=== PATIENT | female | born 1995 | race Caucasian/White ===

== ENCOUNTER 2020-04-19 17:46 | Observation (INO) | payer OTHER, MEDICAID, SELFPAY ==
[2020-04-19] MEDS: LACTATED RINGERS 1,000 ML 1000 ML IV (18:54)
[2020-04-19 19:02] LABS: Bacteria Urine None Seen; RBC Urine None Seen (0-5/HPF); WBC Urine None Seen (0-5/HPF)
[2020-04-19 19:05] LABS: Appearance Urine UA CLEAR; Color Urine UA YELLOW; Glucose Urine UA NEGATIVE (Negative); Ketones Urine UA 2+ (NEGATIVE); Leukocyte Esterase Urine UA NEGATIVE (NEGATIVE); Nitrite Urine UA NEGATIVE (Negative); Occult Blood Urine UA NEGATIVE (Negative); Protein Urine UA 2+ (Negative); Specific Gravity Urine UA >=1.030 (1.000-1.035); Urobilinogen Urine UA 0.2 E.U./dL (0.2)
[2020-04-19 19:32] LABS: Squamous Epithelial Cell Urine 0-1 /HPF (0-5/HPF)
[2020-04-19 19:33] LABS: Amorphous Sediment Urine 2+; Culture Indicated Urine Cult Not Indicated
[2020-04-19 19:40] LABS: Bilirubin Urine UA Negative (NEGATIVE)
[2020-04-19 19:51] LABS: COVID19 -Nasal RAPID Negative (Negative)
--- NOTE | 2020-04-19 19:56 | P.TNLD_ITS ---
Visit Information Visit Information Date of evaluation: 04/20/20 On-call OB Provider: Debo Oakes Comments/Additional reasons for admission: Patient is a 25-year-old at 25 weeks and 4 days gestation who receives care with midwives on [facility]. She has had hyperemesis throughout this and came in this evening with vomiting and diarrhea. Denied fevers or exposure to COVID-19. Vital Signs Vital Signs: Temperature 97.9? blood pressure 119/63 heart rate 90 respirations 16 Objective Labs Labs: Laboratory Results - last 24 hr 04/19/20 04/19/20 18:37 18:37 Urine Color Yellow Urine Appearance Clear Urine pH 6.0 Ur Specific [place] >=1.030 H Urine Protein 2+ H Urine Glucose (UA) Negative Urine Ketones 2+ H Urine Occult Blood Negative Urine Nitrate Negative Urine Bilirubin Negative Urine Urobilinogen 0.2 Ur Leukocyte Esterase Negative Urine RBC None seen Urine WBC None seen Ur Squamous Epith Cells 0-1 /hpf Amorphous Sediment 2+ Urine Bacteria None seen Ur Culture Indicated? Cult not indicated COVID-19 PCR Negative Evaluation Evaluation Baseline heart rate: 145 Variability: Moderate (11-25) monitor accelerations: Present monitor decelerations: Absent Laboratory results: Laboratory Tests 04/19/20 04/19/20 18:37 18:37 Urine Color Yellow Urine Appearance Clear Urine pH 6.0 Ur Specific [place] >=1.030 H Urine Protein 2+ H Urine Glucose (UA) Negative Urine Ketones 2+ H Urine Occult Blood Negative Urine Nitrate Negative Urine Bilirubin Negative Urine Urobilinogen 0.2 Ur Leukocyte Esterase Negative Urine RBC None seen Urine WBC None seen Ur Squamous Epith Cells 0-1 /hpf Amorphous Sediment 2+ Urine Bacteria None seen Ur Culture Indicated? Cult not indicated COVID-19 PCR Negative Diagnosis, Plan/Disposition Final Diagnosis (1) 25 weeks gestation of : Status: Acute (2) Hyperemesis affecting , antepartum: Status: Acute Plan/Disposition Plan: 25-year-old at 25 weeks and 4 days gestation with vomiting and diarrhea. She has had hyperemesis throughout this . COVID was negative. UA negative with the exception of ketones consistent with dehydration. Patient felt much better after a L fluids and Zofran. She was tolerating oral intake and felt comfortable going home. She will follow-up with her virtualization engineer. OB Disposition: home
[2020-04-19] MEDS: ONDANSETRON 4 MG/2 ML INJ IV (20:15)
== END 2020-04-19 20:22 | disposition home or self-care (01) ==
LOC: LABOR 17:49
PROVIDERS: Admitting Provider Family Medicine; Referring Provider Family Medicine; Visit Provider Family Medicine
DX: O21.0 Mild hyperemesis gravidarum (principal); R19.7 Diarrhea, unspecified; Z3A.25 25 weeks gestation of pregnancy
CPT/HCPCS: 59025; 81001; 87635; 96360; G0378; G0379; J2405